=== PATIENT | male | born 1955 | race Caucasian/White ===

== ENCOUNTER 2020-02-29 07:04 | Inpatient (IN) ==
[2020-02-29] MEDS ORDERED: ENTEREG ONE (07:32)
[2020-02-29] MEDS ORDERED: INVANZ 1 GM/NS 1 GM/50 ML IVPB ONE (07:33)
[2020-02-29] MEDS ORDERED: LR 1,000 ML ONE ×2 (07:33→09:30)
[2020-02-29] MEDS ORDERED: VERSED ONE (07:43)
[2020-02-29] MEDS ORDERED: FENTANYL ONE ×2 (07:44→11:49)
[2020-02-29] MEDS ORDERED: DIPRIVAN 1% ONE (07:44)
[2020-02-29 07:51] LABS: BASO# 0.12 X1000 (0.0-0.2); BASO% 2.3 % (0.0-0.8); EOS# 0.22 X1000 (0.0-0.7); EOS% 4.2 % (0.0-10.0); HEMATOCRIT 44.9 % (42.0-52.0); HEMOGLOBIN 15.1 g/dL (14.0-18.0); LYMPH% 11.4 % (20.5-51.1); MCH 30.8 PG (27-31); MCHC 33.6 g/dL (33-37); MCV 91.4 FL (81-99); MONO# 0.77 X1000 (0.11-0.59); MONO% 14.7 % (1.7-9.3); MPV 9.8 FL (7.4-10.4); NEUT# 3.54 X1000 (1.4-6.5); NEUT% 67.4 % (42.2-75.2); PLT 296 X1000 (130-400); RBC 4.91 XMIL (4.7-6.1); RDW 13.7 % (11.5-14.5); WBC 5.25 X1000 (4.8-10.8)
[2020-02-29 08:06] LABS: AGAP 12; BUN 15 mg/dL (8-22); CALCIUM 9.1 mg/dL (8.8-10.2); CHLORIDE 100 mmol/L (98-107); COSMO 274; CREATININE 0.9 mg/dL (0.7-1.2); ESTIMATED GFR > 60; GLUCOSE 95 mg/dL (70-104); POTASSIUM 4.3 mmol/L (3.5-5.1); SODIUM 137 mmol/L (136-145); TCO2 25 mmol/L (25-35)
[2020-02-29] MEDS ORDERED: MARCAINE 0.25% PF/EPI 1:200,000 ONE (09:30)
[2020-02-29] MEDS ORDERED: DECADRON ONE (10:00)
[2020-02-29] MEDS ORDERED: XYLOCAINE-MPF 2% ONE (10:00)
[2020-02-29] MEDS ORDERED: QUELICIN (DOSE) ONE (10:00)
[2020-02-29] MEDS ORDERED: ZEMURON ONE ×5 (10:00→13:50)
[2020-02-29] MEDS ORDERED: ZOFRAN ONE (10:00)
[2020-02-29] MEDS ORDERED: OFIRMEV 1000 MG/ISOTONIC SOLN 1,000 MG/100 ML BOTTLE ONE (10:00)
[2020-02-29] MEDS ORDERED: ROBINUL ONE (10:02)
[2020-02-29] MEDS ORDERED: NEOSTIGMINE ONE (10:02)
[2020-02-29 10:40] LABS: URINE SOURCE CATH
[2020-02-29 10:45] LABS: BILIRUBIN URINE NEGATIVE (NEGATIVE); BLOOD URINE NEGATIVE (NEGATIVE); COLOR YELLOW; GLUCOSE URINE NEGATIVE (NEGATIVE); KETONE URINE 60 mg/dL (NEGATIVE); LEUKOCYTES URINE NEGATIVE (NEGATIVE); NITRITE URINE NEGATIVE (NEGATIVE); PH URINE 6.5; PROTEIN URINE TRACE mg/dL (NEGATIVE); SP GRAVITY URINE 1.028; TURBIDITY URINE CLEAR (CLEAR); UROBILINOGEN URINE NORMAL (NORMAL)
[2020-02-29 10:46] LABS: UR EPITHELIAL CELLS <10 /HPF (<10); URINE BACTERIA NEGATIVE /HPF; URINE RBC <10 /HPF (<10); URINE WBC <10 /HPF (<10)
[2020-02-29] MEDS ORDERED: EXPAREL 1.3% ONE (10:59)
[2020-02-29] MEDS ORDERED: MARCAINE 0.25% ONE (11:00)
[2020-02-29] MEDS ORDERED: DILAUDID ONE (12:56)
[2020-02-29] MEDS ORDERED: PRILOSEC PO PRN (15:36)
[2020-02-29] MEDS ORDERED: LOVENOX SUBQ SCH (15:36)
[2020-02-29] MEDS ORDERED: ZOFRAN IV PRN (15:36)
--- NOTE | 2020-02-29 17:28 | OPERATIVE NOTE ---
PROCEDURE DATE: 02/29/2020 POSTOPERATIVE DIAGNOSES: 1. 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 2. 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 POSTOPERATIVE DIAGNOSES: 1. 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 2. 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 PROCEDURES PERFORMED: Laparoscopic assisted total proctocolectomy and end ileostomy. Dr. Rich was present for the entirety of the case both laparoscopic and open portions. He facilitated retraction, exposure, identification of anatomy distorted by radiation and tumor. ESTIMATED BLOOD LOSS: 200 mL. SPECIMENS: Colon and rectum. ANESTHESIA: General with TAP. OPERATIVE FINDINGS: There was a tattooed lesion in the right colon. There was a large tumor previously noted very low just 2 to 3 cm inside the anal verge. Otherwise, no evidence of metastatic disease. OPERATIVE NOTE: Risks, benefits, and alternatives were discussed with the patient and he consented to the procedure. He was seen preoperatively. Surgical site was confirmed. He was marked for his ileostomy. He was taken to the operating room and placed in supine position. General anesthesia was induced. Zendejas catheter and NG tube was placed and he was then placed in lithotomy position, padding his bony prominences. His perineum was prepped with Betadine. His abdomen was prepped with chlorhexidine solution. After a time-out, we gained access laparoscopically with a Mayi trocar through an umbilical hernia and insufflated the abdomen. A 5 mm trocar was placed suprapubic and a 12 mm in the left lower quadrant. Placed him in Trendelenburg, left side down. We identified the ileocolic pedicle and circled this, dissecting out with LigaSure device and divided at the level of the duodenum with a gold load Endo KENNEY stapler. We continued our medial to lateral dissection up to the lateral sidewall of the liver. We then completed our mesenteric dissection, divided the ileum with a purple load Endo KENNEY stapler and continued our dissection around. We took the omentum off the transverse colon, taking down the splenic flexure and then divided the mesentery, protecting the duodenum along its course until we reached an area of the sigmoid colon. The colon was completely mobilized down to the level of the proximal rectum. At this point we made a lower midline incision, removing our trocars, placed an Nick wound protector and continued our total mesorectal excision. We highly ligated the inferior mesenteric pedicle using a gold load stapler, identifying the ureters bilaterally and protecting them. We continued our mesorectal dissection to the pelvic floor. We could palpate the tumor and had wide margins around this as wide as we could. The wound went below the perineum and made a skin incision around the anus, carrying this down through, identifying the sacrum and entering the abdomen posterior to this and continued as wide of a resection around this as we could to provide adequate radial margins. The specimen was then removed and passed off. Hemostasis was noted. We protected the prostate and ureters bilaterally during all this. The perineum was then closed, reapproximating the fascia and muscle with 0 Vicryl. Skin was closed with a running 4-0 Monocryl. The peritoneum was closed intra-abdominally and a drain was brought out the left lower quadrant port site and secured with a nylon suture. The bowel was placed back in neutral position and covered with omentum. Right lower quadrant ostomy incision was made and the ileum was brought out through this with care not to try to twist the mesentery. We placed a Eufemia clamp on this. Irrigated the abdomen and noted hemostasis. Please also note there is a right lower quadrant and upper midline 5 mm trocar that was also placed during the laparoscopic portion. The fascia was then closed reapproximating the peritoneum and the fascia with a running #1 looped PDS suture. We did change our gloves prior to this and closed the superficial wound with clips. Port sites were closed with Monocryl. After excluding the wound, we removed the staple line and matured the ileostomy with interrupted 3-0 Vicryl sutures. Ostomy appliance and dressing was applied. He tolerated it well. Counts were correct. I spoke with the family. cc: Santana Lloyd MD [facility]
[2020-02-29] MEDS: OFIRMEV 1000 MG/ISOTONIC SOLN 1,000 MG/100 ML BOTTLE IV SCH (18:22)
[2020-02-29] MEDS: PERIDEX MT SCH (20:10)
[2020-02-29] MEDS: LR 1,000 ML IV SCH (20:10)
[2020-02-29] MEDS: MORPHINE IV PRN (20:10)
[2020-03-01] MEDS: OFIRMEV 1000 MG/ISOTONIC SOLN 1,000 MG/100 ML BOTTLE IV SCH ×3 (00:07→12:49)
[2020-03-01] MEDS: LR 1,000 ML IV SCH ×4 (01:45→23:20)
[2020-03-01] MEDS: MORPHINE IV PRN ×3 (03:34→23:16)
[2020-03-01 07:49] LABS: HEMATOCRIT 36.2 % (42.0-52.0); HEMOGLOBIN 12.3 g/dL (14.0-18.0); MCH 31.5 PG (27-31); MCV 92.6 FL (81-99); MPV 10.2 FL (7.4-10.4); RBC 3.91 XMIL (4.7-6.1); RDW 13.6 % (11.5-14.5); WBC 6.92 X1000 (4.8-10.8)
[2020-03-01 08:15] LABS: AGAP 10; BUN 12 mg/dL (8-22); CALCIUM 8.7 mg/dL (8.8-10.2); CHLORIDE 102 mmol/L (98-107); COSMO 276; CREATININE 0.8 mg/dL (0.7-1.2); ESTIMATED GFR > 60; GLUCOSE 109 mg/dL (70-104); POTASSIUM 4.3 mmol/L (3.5-5.1); SODIUM 138 mmol/L (136-145); TCO2 26 mmol/L (25-35)
[2020-03-01] MEDS: ULTRAM PO PRN ×2 (09:43→20:44)
[2020-03-01] MEDS: MAG-OX PO SCH (09:43)
[2020-03-01] MEDS: LOVENOX SUBQ SCH (09:44)
[2020-03-01] MEDS: ENTEREG PO SCH ×2 (09:44→20:44)
[2020-03-01] MEDS: PERIDEX MT SCH ×2 (09:44→20:44)
--- NOTE | 2020-03-01 13:38 | GENERAL SURGERY PROGRESS NOTE ---
DATE: 03/01/2020 SUBJECTIVE: Sore but doing okay. He did walk some day. Urine output has been adequate. No fevers. No tachycardia. His ostomy is pink, viable, some stool in the bag. Hematocrit today 36, appropriate drop. White count 6. Creatinine is 0.8. ASSESSMENT/PLAN: A 64-year-old gentleman status post laparoscopic-assisted total proctocolectomy. We will continue current care. Out of bed, ambulating. Clear liquids as tolerated. He is on Lovenox, LR at 100, Entereg, Ofirmev, Ultram, and morphine as needed. cc: Santana Lloyd MD
[2020-03-02] MEDS: LR 1,000 ML IV SCH ×3 (05:45→23:16)
[2020-03-02] MEDS: MORPHINE IV PRN ×2 (05:45→11:00)
[2020-03-02] MEDS: ULTRAM PO PRN (10:51)
[2020-03-02] MEDS: ENTEREG PO SCH ×2 (10:53→20:50)
[2020-03-02] MEDS: MAG-OX PO SCH (10:53)
[2020-03-02] MEDS: PERIDEX MT SCH ×2 (10:54→20:50)
[2020-03-02] MEDS: LOVENOX SUBQ SCH (10:54)
--- NOTE | 2020-03-02 15:45 | GENERAL SURGERY PROGRESS NOTE ---
DATE: 03/02/2020 SUBJECTIVE: He is ambulating in the drake. He is having ileostomy output. No fevers. No tachycardia. Not taking much p.o., but not really nauseated. OBJECTIVE: On exam, he is afebrile. No tachycardia. DATA: I reviewed his labs, nothing new today. Ileostomy output is recorded at 800. ASSESSMENT AND PLAN: A 64-year-old gentleman status post total proctocolectomy with end- ileostomy. We will continue to monitor his ileostomy output. Suspect we will have to start Imodium. He is still requiring significant amount of pain control. Otherwise, he is doing well . He is on prophylactic Lovenox. Dr. Nguyen is following the patient for the weekend. cc: Santana Lloyd MD [facility]
[2020-03-03] MEDS: PERIDEX MT SCH ×3 (08:02→20:14)
[2020-03-03] MEDS: ENTEREG PO SCH ×3 (08:03→20:11)
[2020-03-03] MEDS: LOVENOX SUBQ SCH (08:03)
[2020-03-03] MEDS: MAG-OX PO SCH (08:03)
--- NOTE | 2020-03-03 10:06 | PROGRESS NOTE ---
DATE: 03/03/2020 SUBJECTIVE: Mr. Eric Mejia is a 64-year-old white male postop day 3 of a complete colon resection per Dr. Lloyd as an end ileostomy with out high output. His heart rate is 91 to 92. O2 saturation 96%. Afebrile. Blood pressure 114/78. We will start him on Imodium, try to slow down the amount of volume out of his ileostomy. We will stop his Entereg protocol. He is on IV lactated Ringer's at 100 mL an hour. He is on a clear liquid diet, and we will advance that slowly. cc: MD Santana Montes MD
[2020-03-03] MEDS: LR 1,000 ML IV SCH ×3 (14:09→20:14)
[2020-03-03] MEDS: LOMOTIL PO SCH ×2 (19:57→20:14)
[2020-03-04] MEDS: LR 1,000 ML IV SCH ×3 (02:00→21:58)
--- NOTE | 2020-03-04 09:26 | PROGRESS NOTE ---
DATE: 03/04/2020 Mr. Mejia seems to be doing well. I removed his pelvic drain today. His ileostomy is functioning. His incision is healing satisfactorily. There is some redness along the incision but it is minimal. I began him on Lomotil twice daily yesterday. We will see how that works. He is requesting a doughnut so that he can sit easier. cc: MD Santana Montes MD
[2020-03-04] MEDS: ENTEREG PO SCH ×2 (11:47→21:57)
[2020-03-04] MEDS: LOMOTIL PO SCH ×2 (11:48→21:57)
[2020-03-04] MEDS: LOVENOX SUBQ SCH (11:48)
[2020-03-04] MEDS: MAG-OX PO SCH (11:48)
[2020-03-04] MEDS: PERIDEX MT SCH ×2 (11:48→21:57)
[2020-03-05] MEDS: PERCOCET-10 PO PRN ×2 (05:02→20:46)
[2020-03-05] MEDS: LOVENOX SUBQ SCH (12:49)
[2020-03-05] MEDS: LOMOTIL PO SCH ×2 (12:49→20:46)
[2020-03-05] MEDS: PERIDEX MT SCH ×2 (12:49→20:47)
--- NOTE | 2020-03-05 17:42 | GENERAL SURGERY PROGRESS NOTE ---
DATE: 03/05/2020 SUBJECTIVE: Doing okay. His ileostomy output is down and it looks like 700 recorded in the last 24 hours. Urine output has been adequate at 1400. His abdomen is soft. His ostomy is pink and viable. Perineal incision is intact. No new labs this morning. I reviewed his medications he remains on Percocet and Zofran as needed, morphine, Lovenox. He was started on Lomotil and that seems to be working effectively. He is on full liquids. He is drinking plenty. He has had good ostomy education. He is ambulating. ASSESSMENT/PLAN: We will monitor his ileostomy output today. I have encouraged him to drink. He has already drank 1 L of water. I have encouraged to drink another one. We will stop his IV fluids and recheck his labs in the morning. Plan for home tomorrow if he is keeping up with his ileostomy output. May need to start Imodium. cc: Santana Lloyd MD
[2020-03-06 08:28] LABS: AGAP 11; ALB/GLOB RATIO 1.1; ALBUMIN 3.3 g/dL (3.5-5.0); ALKALINE PHOSPHATASE 76 U/L (32-122); BUN 6 mg/dL (8-22); CALCIUM 9.2 mg/dL (8.8-10.2); CHLORIDE 101 mmol/L (98-107); COSMO 275; CREATININE 0.8 mg/dL (0.7-1.2); ESTIMATED GFR > 60; GLUCOSE 101 mg/dL (70-104); GOT 17 U/L (10-34); GPT 22 U/L (10-44); MAGNESIUM 1.8 mg/dL (1.5-2.7); POTASSIUM 4.2 mmol/L (3.5-5.1); SODIUM 139 mmol/L (136-145); TCO2 27 mmol/L (25-35); TOTAL BILIRUBIN 0.43 mg/dL (0.20-1.00); TOTAL PROTEIN 6.4 g/dL (6.3-8.3)
[2020-03-06 11:12] VITALS: BP 115/61
[2020-03-06] MEDS: LOMOTIL PO SCH (11:54)
[2020-03-06] MEDS: LOVENOX SUBQ SCH (11:54)
[2020-03-06] MEDS: PERIDEX MT SCH (11:54)
--- NOTE | 2020-03-06 17:46 | DISCHARGE SUMMARY ---
ADMISSION DATE: 02/29/2020 DISCHARGE DATE: 03/06/2020 PREOPERATIVE DIAGNOSIS: Low rectal carcinoma with diffuse tubulovillous adenomas. PROCEDURE PERFORMED: Laparoscopic assisted proctocolectomy. HISTORY OF PRESENT ILLNESS: This 62-year-old gentleman who is status post neoadjuvant therapy for a low rectal carcinoma. He also had numerous high-grade tubulovillous adenomas throughout his colon extending to the right colon. HOSPITAL COURSE: Patient was admitted on the day of his surgery for the above procedure. For details, please see dictated operative note. Postoperatively, he did well. He was advanced per the ERAS protocol. His Zendejas was removed on postop day 3 given his low pelvic dissection. His drain was removed that was placed in his pelvis as well prior to discharge, he had increasing ileostomy output. He started having ileostomy output really the night of surgery, but by day 3 postoperatively is up to 4 L, but with his initiation of Lomotil twice daily was down to 2 L and subsequently fell to 700 and had approximately 400 out the 24 hours prior to him going home. His perineal wound was intact. The abdominal incision is intact. He had ostomy education continued on prophylactic Lovenox and PPI throughout his stay and diet was advanced full liquids. He tolerated this well. He was drinking greater than 2 L of water a day, maintaining his hydration. He is felt safe for discharge. DISCHARGE MEDICATIONS: He will continue taking any home medications although all he takes supplements. He was given Lomotil 1 tablet twice a day and instructed on how to take this. He was also given a prescription for Percocet 10 mg. DISCHARGE INSTRUCTIONS: Given in written and verbal format. He had home health arranged for ileostomy education as an outpatient. He will see me in a week for staple removal. He will call with any worsening symptoms. He will advance his diet gradually over to a low residual diet as tolerated at home. cc: Santana Lloyd MD [facility]
== END 2020-03-06 13:55 | disposition home health service (06) | DRG 331 ==
LOC: SURHOLD 07:04 → 4N 13:28
PROVIDERS: ADMIT Surgery; ATTEND Surgery